=== PATIENT | male | born 1975 | race Caucasian/White ===

== ENCOUNTER 2022-08-07 06:37 | Inpatient (IN) ==
[2022-08-07] MEDS ORDERED: IOPAMIDOL 100 ML BOTTLE IV ONE (06:38)
[2022-08-07 06:55] LABS: POC Calcium, Ionized 1.16 (1.16-1.32); POC Creatinine 0.9 (0.6-1.2); POC Potassium 3.7 (3.3-5.1)
[2022-08-07] MEDS ORDERED: IPRATROPIUM/ALBUTEROL 3 ML AMPUL.NEB NEB ONE ×2 (07:19→13:52)
--- NOTE | 2022-08-07 07:19 | Emergency Department Note ---
HPI General Chief complaint: Shortness of Breath/Dyspnea Stated complaint: Shortness of Breath, hx of CHF Time Seen by Provider: 08/07/22 06:45 Source: patient Mode of arrival: ambulatory Limitations: no limitations History of Present Illness HPI Narrative: Narrative: Patient is a 47-year-old male with a past medical history significant for CHF who presents to the emergency department due to shortness of breath. Patient states that he has had a swelling. At time feeling short of breath when lying flat and waking at night feeling short of breath. He states that this morning though he became significantly more short of breath, and so went to lay down. While laying down he had his blood pressure taken, and this was consistently normal for him, but he noticed that his oxygen saturation on his home O2 monitor was dipping down consistently into the 70s and 80s, but he did state that it would consistently return to the 90s. He does endorse some worsening shortness of breath with activity as well. He endorses lightheadedness. He denies any other symptoms at this time. Patient states that he was diagnosed with heart failure in the summer, and has been taking Lasix since that time. He states that initially when he would take Lasix he would urinate 5 or 6 times, but now urinates 2 times when he takes Lasix. Related Data Home Medications Medication Instructions Recorded Confirmed No Known Home Meds 05/18/21 05/18/21 Allergies Allergy/AdvReac Type Severity Reaction Status Date / Time ceftriaxone [From Rocephin] Allergy Severe Anaphylaxis Verified 03/08/22 23:22 Review of Systems ROS ROS Narrative: Narrative: Constitutional: Denies fever or weakness Eyes: Denies eye pain or vision change ENT ED: Denies throat pain or rhinorrhea Cardiovascular: Reports dyspnea on exertion, orthopnea and other (Lightheadedness); Denies chest pain or edema Respiratory: Reports shortness of breath; Denies cough Gastrointestinal: Denies abdominal pain, nausea, vomiting, diarrhea, constipation, hematochezia or melena Genitourinary: Denies dysuria or frequency Musculoskeletal: Denies back pain or myalgia Integumentary: Denies rash or lesions Neurological: Denies headache, weakness, numbness, confusion, abnormal gait or dizziness Endocrine: Denies fatigue or polyuria PFS Narrative Patient History Narrative: Narrative: Medical/Surgical/Family History All Active Problems (Updated 08/07/22 @ 11:26 by Valeriy Angeles MD) Bilateral hand pain (Acute) Paresthesia of both hands (Acute) Bilateral carpal tunnel syndrome (Acute) Acute and chronic respiratory failure with hypoxia (Acute) CHF (congestive heart failure) (Acute) Bilateral leg edema (Acute) CHF exacerbation (Acute) Social History Smoking Status: Current every day smoker Exam Narrative Narrative: Narrative: General Limitations: no limitations General appearance: Present alert and in no apparent distress; Absent anxious, appears intoxicated or sleepy Head Head: Present atraumatic and normocephalic Eye Eye: Present EOMI; Absent scleral icterus or nystagmus ENT ENT: Present mucous membranes moist; Absent nasal congestion Neck Neck: Present full ROM; Absent tenderness Chest Chest: Present normal inspection and symmetric chest wall rise; Absent tenderness Respiratory Respiratory: Present normal lung sounds bilaterally, rales/crackles and wheezes; Absent respiratory distress, stridor or accessory muscle use Cardiovascular Cardiovascular: Present normal rhythm, tachycardia and normal heart sounds Adbominal Abdominal: Present soft and normal bowel sounds; Absent distention Extremities Extremities: Present normal inspection and full ROM; Absent tenderness, pedal edema or pretibial edema Back Back: Present normal inspection and full ROM Neurological Neurological: Present alert and oriented X3 Psychiatric Psychiatric: Present normal affect and normal mood Skin Skin: Present warm (WNL), dry and normal color Course Vital Signs Vital signs: Vital Signs Temperature 97.8 F 08/07/22 06:40 Pulse Rate 104 H 08/07/22 06:40 Respiratory Rate 38 H 08/07/22 06:40 Blood Pressure 141/116 08/07/22 06:40 Pulse Oximetry (%) 97 08/07/22 06:40 Oxygen Delivery Method 08/07/22 06:40 Temperature 97.8 F 08/07/22 06:40 Pulse Rate 87 08/07/22 11:20 Respiratory Rate 27 H 08/07/22 11:20 Blood Pressure 128/84 08/07/22 11:11 Pulse Oximetry (%) 96 08/07/22 11:20 Oxygen Delivery Method 08/07/22 10:12 Oxygen Flow Rate (L/min) 2 08/07/22 10:12 [facility] MDM Narrative Medical decision making narrative: Narrative: Patient is a 47-year-old male who presents to the emergency department due to shortness of breath and low oxygen saturation. Differential diagnoses include heart failure exacerbation, undiagnosed COPD given patient's long history of smoking, pneumonia, COVID, influenza, and pulmonary embolus. Pulmonary embolus is less likely given absence of signs or symptoms of DVT, absence of immobilization or surgery in the previous 4 weeks, absence of previous clot, absence of hemoptysis, and absence of diagnosis of malignancy. Patient's labs are significant for an elevated BNP of 2048. I performed a bedside echo which did demonstrate decreased EF. Patient's D-dimer was elevated, so a CT angio was performed. Clots and were not visualized, but p atient was found to have groundglass opacities. Patient has received a dose of doxycycline. Patient was given Lasix. Patient did have improvement in his shortness of breath with Lasix. He was also given a DuoNeb with mild improvement. Despite these interventions patient continued to have episodes of hypoxemia, and became hypoxemic with walking. For these reasons I spoke to Dr. Up and he has agreed to see and evaluate patient for admission. Lab Data Result diagrams: 08/07/22 07:05 Labs: Lab Results 08/07/22 08/07/22 08/07/22 Range/Units 06:52 06:59 07:04 WBC (4.5-11.0) K/mcL RBC (4.63-6.08) M/mcL Hgb (13.7-17.5) g/dL Hct (40.1-51.0) % POC Hct 39.0 L (41-55) MCV (80.0-100.0) fL MCH (26.0-34.0) pg MCHC (31.0-36.0) g/dL RDW (11.5-14.5) % Plt Count (140-440) K/mcL MPV (8.8-12.5) fL Immature Gran % (Auto) (0.0-0.5) % Neut % (Auto) (38.0-78.0) % Lymph % (Auto) (15.5-49.0) % [place] % (Auto) (1.0-12.0) % Eos % (Auto) (0.0-7.0) % Baso % (Auto) (0.0-2.0) % Lymph # (Auto) (1.50-4.80) K/mcL [place] # (Auto) (0.10-0.90) K/mcL Eos # (Auto) (0.00-0.70) K/mcL Baso # (Auto) (0.00-0.30) K/mcL Immature Gran # (0.00-0.05) K/mcl Absolute Neutrophils (1.80-8.00) K/mcL D-Dimer 1.71 H (0.27-0.50) ug/mL POC pH (7.35-7.45) POC pCO2 (35-45) mmHg POC pO2 (80-100) mmHg POC HCO3 (22-26) mmHg POC ABG Base Excess (-2-3) ABG Lactic Acid (0.5-2) Hgb O2 Saturation (94-97) POC Sodium 139 (133-145) POC Potassium 3.7 (3.3-5.1) POC Chloride 103 (96-108) POC Total CO2 25.0 (22-30) POC BUN 14 (6-20) POC Creatinine 0.9 (0.6-1.2) POC Glucose 139 H (70-105) POC WB Ioniz Calcium 1.16 (1.16-1.32) NT-Pro-B Natriuret Pep (<125.0) pg/mL POC Troponin I < 0.02 (0.00-0.08) 08/07/22 08/07/22 08/07/22 Range/Units 07:04 07:05 07:05 WBC 10.2 (4.5-11.0) K/mcL RBC 4.33 L (4.63-6.08) M/mcL Hgb 13.3 L (13.7-17.5) g/dL Hct 40.1 (40.1-51.0) % POC Hct (41-55) MCV 92.6 (80.0-100.0) fL MCH 30.7 (26.0-34.0) pg MCHC 33.2 (31.0-36.0) g/dL RDW 13.3 (11.5-14.5) % Plt Count 288 (140-440) K/mcL MPV 9.3 (8.8-12.5) fL Immature Gran % (Auto) 0.9 H (0.0-0.5) % Neut % (Auto) 66.4 (38.0-78.0) % Lymph % (Auto) 24.7 (15.5-49.0) % [place] % (Auto) 5.4 (1.0-12.0) % Eos % (Auto) 2.1 (0.0-7.0) % Baso % (Auto) 0.5 (0.0-2.0) % Lymph # (Auto) 2.52 (1.50-4.80) K/mcL [place] # (Auto) 0.55 (0.10-0.90) K/mcL Eos # (Auto) 0.21 (0.00-0.70) K/mcL Baso # (Auto) 0.05 (0.00-0.30) K/mcL Immature Gran # 0.09 H (0.00-0.05) K/mcl Absolute Neutrophils 6.79 (1.80-8.00) K/mcL D-Dimer (0.27-0.50) ug/mL POC pH 7.32 L (7.35-7.45) POC pCO2 48.4 H (35-45) mmHg POC pO2 33 L* (80-100) mmHg POC HCO3 25.3 (22-26) mmHg POC ABG Base Excess -1.0 (-2-3) ABG Lactic Acid 1.1 (0.5-2) Hgb O2 Saturation 59.0 L (94-97) POC Sodium (133-145) POC Potassium (3.3-5.1) POC Chloride (96-108) POC Total CO2 27.0 (22-30) POC BUN (6-20) POC Creatinine (0.6-1.2) POC Glucose (70-105) POC WB Ioniz Calcium (1.16-1.32) NT-Pro-B Natriuret Pep 2048.0 H (<125.0) pg/mL POC Troponin I (0.00-0.08) ED POC Tests ED POC Tests: NORMAN - Influenza A Negative NORMAN - Influenza B Negative NORMAN - SARS Antigen Negative EKG Data EKG #1: EKG attestation: Yes I reviewed and interpreted this EKG. EKG results narrative: Sinus tachycardia with a rate of 103, left axis deviation, [place] of 151, QRS of 95, QTc of 499, T wave flattening in leads aVL and III, and absence of ST elevation or depression. Discharge Plan Patient/Caregiver Discharge Instructions Pt seen by PACKAGER MACHINE/PA only: No Clinical Impression: CHF exacerbation Patient Disposition: Xfer As Inpt ([facility]) Condition: Fair Follow up with: Nehemias Edwards MD [Primary Care Provider] - Prescriptions: No Action No Known Home Meds
--- NOTE | 2022-08-07 07:20 | XRay Report ---
CLINICAL INFORMATION: Dyspnea COMPARISON: 03/08/2022 TECHNIQUE: Portable FINDINGS: Equivocal cardiomegaly is unchanged. Mediastinum and pulmonary vessels are normal. Lungs are clear. No effusions. IMPRESSION: No acute disease. Interpreted and Authenticated by: Robi See 08/07/22
[2022-08-07 07:36] LABS: Basophils # (Auto) 0.05 K/mcL (0.00-0.30); Basophils % (Auto) 0.5 % (0.0-2.0); Eosinophils # (Auto) 0.21 K/mcL (0.00-0.70); Eosinophils % (Auto) 2.1 % (0.0-7.0); Hematocrit 40.1 % (40.1-51.0); Hemoglobin 13.3 g/dL (13.7-17.5); Lymphocytes # (Auto) 2.52 K/mcL (1.50-4.80); Lymphocytes % (Auto) 24.7 % (15.5-49.0); Mean Cell Volume 92.6 fL (80.0-100.0); Mean Corpuscular HGB Conc 33.2 g/dL (31.0-36.0); Mean Platelet Volume 9.3 fL (8.8-12.5); Monocytes # (Auto) 0.55 K/mcL (0.10-0.90); Monocytes % (Auto) 5.4 % (1.0-12.0); Neutrophils % (Auto) 66.4 % (38.0-78.0); Platelet Count 288 K/mcL (140-440); RBC 4.33 M/mcL (4.63-6.08); Red Cell Distribution Width 13.3 % (11.5-14.5); WBC 10.2 K/mcL (4.5-11.0)
[2022-08-07] MEDS ORDERED: FUROSEMIDE 100 MG/10 ML VIAL IV ONE (08:05)
[2022-08-07] MEDS ORDERED: DOXYCYCLINE 100 MG in DEXTROSE 5% IN WATER 100 ML IV ONE (09:14)
--- NOTE | 2022-08-07 11:29 | Internal Med History&Physical ---
HPI History of Present Illness Patient information: Note initiated : 08/07/22 at 11:26 am Service Date, if different from initiated Date: [] Patient: Marques Preciado 47 y/o M admitted on for Shortness of Breath, hx of CHF. Chief Complaint: [] History of present illness: Mr. Preciado is a 47 year old male with a reported history of systolic heart failure with an LV ejection fraction of 30% diagnosed in the summer 2019 who presented to the ED for increasing shortness of breath and orthopnea. In the emergency department, the patient had an elevated NT proBNP. EKG showed sinus tachycardia, troponin was normal. Chest x-ray did not show any acute changes. The patient had an elevated D-dimer therefore a CTA chest was performed. The radiology interpretation is still pending however the ED doc reports that the radiologist said it did not show any PE and was positive for groundglass opacities bilaterally. Other work-up in the ED including CBC with differential which did not show any leukocytosis, mild anemia similar to prior lab values with a hemoglobin of 13.3, normal hematocrit. A venous blood gas which showed a pH of 7.32 with a PCO2 of 48.8. A basic metabolic panel which was unremarkable. The most likely reason for the patient's symptoms is heart failure. Review of systems Constitutional: no fever, fatigue, or weight loss Eyes: no vision changes or pain Cardiovascular: no chest pain, no palpitations Respiratory: Positive for dyspnea and cough Gastrointestinal: no abdominal pain, no nausea, vomiting, or diarrhea Genitourinary: no dysuria or difficulty voiding Musculoskeletal: no arthralgia or myalgia Integumentary: no skin lesion or wound Neurological: no focal weakness or numbness Psychiatric: no anxiety or depression Physical exam Head: Atraumatic, normal inspection. Eyes: normal appearance, no scleral icterus. Neck: full ROM Respiratory: Faint bibasilar crackles, bilateral wheezing present. Cardiovascular: normal rate and rhythm, S1, S2. GI/Abdominal: soft, nontender, no guarding. Extremities: full range of motion, nontender. Neurological: CN II-XII intact, intact motor, intact sensation. Psychiatric: normal mood. Skin: warm, normal color PFSH PFSH All Active Problems (Updated 08/07/22 @ 11:26 by Valeriy Angeles MD) Bilateral hand pain (Acute) Paresthesia of both hands (Acute) Bilateral carpal tunnel syndrome (Acute) Acute and chronic respiratory failure with hypoxia (Acute) CHF (congestive heart failure) (Acute) Bilateral leg edema (Acute) CHF exacerbation (Acute) Social History smoking status: Current every day smoker MEDS/ALLERGIES Home Medications and Allergies Home Medications Medication Instructions Recorded Confirmed Type No Known Home Meds 05/18/21 05/18/21 History Allergies Allergy/AdvReac Type Severity Reaction Status Date / Time ceftriaxone [From Rocephin] Allergy Severe Anaphylaxis Verified 03/08/22 23:22 EXAM Constitutional Vitals: Temp Pulse Resp BP Pulse Ox O2 Del Method O2 Flow Rate 97.8 F 87 27 H 128/84 96 2 08/07/22 06:40 08/07/22 11:20 08/07/22 11:20 08/07/22 11:11 08/07/22 11:20 08/07/22 10:12 08/07/22 10:12 DATA Data Completed and Pending Labs: Labs from last 24 hours 08/07/22 08/07/22 08/07/22 07:05 07:05 07:04 WBC 10.2 RBC 4.33 L Hgb 13.3 L Hct 40.1 POC Hct MCV 92.6 MCH 30.7 MCHC 33.2 RDW 13.3 Plt Count 288 MPV 9.3 Immature Gran % (Auto) 0.9 H Neut % (Auto) 66.4 Lymph % (Auto) 24.7 [place] % (Auto) 5.4 Eos % (Auto) 2.1 Baso % (Auto) 0.5 Lymph # (Auto) 2.52 [place] # (Auto) 0.55 Eos # (Auto) 0.21 Baso # (Auto) 0.05 Immature Gran # 0.09 H Absolute Neutrophils 6.79 D-Dimer POC pH 7.32 L POC pCO2 48.4 H POC pO2 33 L* POC HCO3 25.3 POC ABG Base Excess -1.0 ABG Lactic Acid 1.1 Hgb O2 Saturation 59.0 L POC Sodium POC Potassium POC Chloride POC Total CO2 27.0 POC BUN POC Creatinine POC Glucose POC WB Ioniz Calcium NT-Pro-B Natriuret Pep 2048.0 H POC Troponin I 08/07/22 08/07/22 08/07/22 07:04 06:59 06:52 WBC RBC Hgb Hct POC Hct 39.0 L MCV MCH MCHC RDW Plt Count MPV Immature Gran % (Auto) Neut % (Auto) Lymph % (Auto) [place] % (Auto) Eos % (Auto) Baso % (Auto) Lymph # (Auto) [place] # (Auto) Eos # (Auto) Baso # (Auto) Immature Gran # Absolute Neutrophils D-Dimer 1.71 H POC pH POC pCO2 POC pO2 POC HCO3 POC ABG Base Excess ABG Lactic Acid Hgb O2 Saturation POC Sodium 139 POC Potassium 3.7 POC Chloride 103 POC Total CO2 25.0 POC BUN 14 POC Creatinine 0.9 POC Glucose 139 H POC WB Ioniz Calcium 1.16 NT-Pro-B Natriuret Pep POC Troponin I < 0.02 A/P Narrative A/P Narrative: Assessment: 47-year-old male with a reported history of systolic heart failure, obesity, tobacco use disorder presented to the ED for shortness of breath and admitted for acute hypoxic respiratory failure likely secondary to acute on chronic heart failure exacerbation. #Acute hypoxic respiratory failure #Probable acute on chronic systolic heart failure #Probable obstructive sleep apnea, untreated #At risk for COPD #Tobacco use disorder #Obesity BMI 32 Plan -Lasix 40 mg IV twice daily. -Monitor renal function, electrolytes, volume status. -Transthoracic echocardiogram. -Check UDS. -Repeat VBG. -Follow-up pending CTA chest report. -Scheduled duonebs and Albuterol nebs as needed. -Reports taking beta-sudha and ARB, continue when reconciled. -Consider adding spironolactone. -Consider adding SGLT2 inhibitor at discharge. -Consider switching ARB to Entresto at discharge. -Home medication reconciliation, continue important home medications. -Nicotine replacement. -CPAP at bedtime. -laboratory monitor. -DVT prophylaxis: Lovenox -Disposition: Home when stable. Referral to cardiology at discharge. Time Spent With Patient Time: Total time spent is greater than 50% in coordination of care (as documented) at patient's floor/unit and/or counseling patient:
[2022-08-07 11:50] LABS: Amphetamine Screen,Urine Suspect positive; Barbiturate Screen,Urine None detected; Benzodiazepines Screen,Urine None detected; Cannabinoid Screen,Urine Suspect Positive; Cocaine Screen,Urine None detected; Opiate Screen,Urine None detected; Oxycodone, Urine Screen None detected; Phencyclidine Screen,Urine None detected
[2022-08-07] MEDS ORDERED: NICOTINE POLACRILEX 2 MG GUM CHEW/PARK PRN (13:12)
[2022-08-07] MEDS ORDERED: LACTULOSE 20 GM/30 ML ORAL.SOL PO PRN (13:12)
[2022-08-07] MEDS ORDERED: ACETAMINOPHEN 325 MG TABLET PO PRN (13:12)
[2022-08-07] MEDS ORDERED: NICOTINE 21 MG PATCH TOPICAL SCH (13:12)
[2022-08-07] MEDS ORDERED: ONDANSETRON 4 MG/2 ML VIAL IV PRN (13:12)
[2022-08-07] MEDS ORDERED: SENNOSIDES 1 TABLET PO PRN (13:12)
[2022-08-07] MEDS ORDERED: ALBUTEROL SULFATE 2.5 MG/3 ML NEBULIZER NEB PRN (13:12)
[2022-08-07] MEDS ORDERED: POTASSIUM CHLORIDE 20 MEQ TABLET PO ONE (13:12)
[2022-08-07 13:59] LABS: ABG Methemoglobin 0.2 % (0.4-1.5); Total Hemoglobin 15.3 gm/Dl (13.5-16.5); VBG Base Excess 2 (-2-3); VBG HCO3 27.5 mmol/L (24.0-28.0); VBG Oxygen Saturation 66.6 % (40.0-70.0); VBG PCO2 44.4 mmHg (41.0-51.0); VBG PH 7.41 U (7.32-7.42); VBG PO2 35.5 mmHg (25.0-40.0); VBG Total CO2 28.9 mmol/L (25.0-29.0)
[2022-08-07] MEDS ORDERED: 0.9 % SODIUM CHLORIDE 10 ML SYRINGE IV SCH (14:00)
[2022-08-07] MEDS: IPRATROPIUM/ALBUTEROL 3 ML AMPUL.NEB NEB SCH ×2 (14:10→15:08)
[2022-08-07 14:27] LABS: ALT/SGPT 35 U/L (<40); AST/SGOT 26 U/L (<40); Albumin 3.7 gm/dL (3.2-5.2); Albumin/Globulin Ratio 1.3 (1.0-2.3); Alkaline Phosphatase 85 U/L (39-117); Bilirubin,Direct 0.3 mg/dL (<0.3); Blood Urea Nitrogen 11 mg/dL (6-20); Calcium 8.6 mg/dL (8.6-10.4); Carbon Dioxide 29 mmol/L (22-30); Chloride 99 mmol/L (96-108); Globulin 2.8 gm/dL (2.2-3.7); Glomerular Filtration Rate 90; Glucose 129 mg/dL (70-105); Lactate Dehydrogenase 305 U/L (135-225); Phosphorous 3.1 mg/dL (2.5-4.5); Triglycerides 172 mg/dL (<150); Uric Acid 6.2 mg/dL (2.5-8.0)
[2022-08-07] MEDS ORDERED: OMEPRAZOLE 20 MG CAPSULE PO PRN (15:56)
[2022-08-07] MEDS ORDERED: FUROSEMIDE 40 MG/4 ML VIAL IV SCH (16:00)
--- NOTE | 2022-08-07 16:31 | Cat Scan Report ---
CLINICAL INFORMATION: Shortness of breath. History of CHF. Elevated d-dimer COMPARISON: CT pulmonary exam 03/09/2022 TECHNIQUE: 80ml of Isovue-370 were injected intravenously. Using SmartPrep to maximize pulmonary artery opacification, .625mm helical slices were obtained from the lung apices through the lung bases. Following reconstruction, 2.5 mm sagittal, coronal, and axial reformations were processed. The exam was reviewed at mediastinal, lung, and bone windows. The exam was performed using radiation dose optimization techniques including, but not limited to, automated exposure control, adjustment of the mA and/or kV according to patient size and use of iterative reconstruction technique. FINDINGS: Pulmonary parenchymal windows moderate patchy groundglass airspace disease which is generally distributed in the peribronchovascular perihilar regions and in the dependent lower lobes. There is also thickening of interlobular septa and tiny bilateral pleural effusions. Findings supportive of congestive heart failure.. Only Mediastinal windows show the heart is mildly enlarged. The pulmonary arteries are well-opacified without evidence of embolus. Pulmonary arteries are mildly diffusely enlarged compared to the previous examination which is supportive of CHF. Thoracic aorta is also normal diameter and well-opacified. There is no adenopathy in the mediastinal, hilar or axillary regions. Esophagus is grossly normal. The thyroid is unremarkable. Bones and soft tissues the chest wall are normal. Images through the superior abdomen show mild diffuse wall thickening of the gallbladder with pericholecystic fluid suggesting acalculous cholecystitis. This is a new finding. A 2 mm nonobstructing stone is seen within a superior calyx of the right kidney. IMPRESSION: 1. No evidence of pulmonary embolus 2. Suspect moderate congestive heart failure. Please correlate with other history and physical exam findings supportive of CHF and BNP 3. Suspect acalculous cholecystitis. Suggest abdominal ultrasound Interpreted and Authenticated by: Robi See 08/07/22
[2022-08-07] MEDS ORDERED: CLINDAMYCIN 150 MG CAPSULE PO SCH (21:00)
[2022-08-07] MEDS ORDERED: DOCUSATE SODIUM 100 MG CAPSULE PO SCH (21:00)
[2022-08-08] MEDS ORDERED: LOSARTAN 25 MG TABLET PO SCH (09:00)
[2022-08-08] MEDS ORDERED: METOPROLOL SUCCINATE 50 MG TAB.XL.24H PO SCH (09:00)
[2022-08-08] MEDS ORDERED: ENOXAPARIN 40 MG/0.4 ML SYRINGE SQ SCH (09:00)
--- NOTE | 2022-08-09 10:20 | EKG ---
[facility] Test Date: 2022-08-07 Pat Name: Marques Preciado Department: ED Room: Gender: Male [employer]: : 1975 Requested By: Faizan Juarez Order Number: [id number] Reading MD: Aguilar Tolentino D.O. Measurements Intervals [place] Rate: 103 P: 43 [place]: 151 QRS: -53 QRSD: 95 T: 51 QT: 380 QTc: 499 Interpretive Statements Sinus tachycardia Borderline T wave abnormalities Borderline prolonged QT interval Electronically Signed On 08-09-2022 10:20:15 PST by Aguilar Tolentino D.O. /[id number]
== END 2022-08-07 19:05 | disposition left against medical advice (07) | DRG 291 ==
LOC: ED 06:37 → ICU 13:08
PROVIDERS: ADMIT Internal Medicine; ATTEND Internal Medicine

== ENCOUNTER 2024-05-03 07:17 | Inpatient (IN) ==
[2024-05-03] MEDS: IPRATROPIUM/ALBUTEROL 3 ML AMPUL.NEB NEB ONE ×2 (07:45→07:55)
[2024-05-03] MEDS: FUROSEMIDE 40 MG/4 ML VIAL IV ONE (07:55)
[2024-05-03 08:20] LABS: Basophils # (Auto) 0.03 K/mcL (0.00-0.30); Basophils % (Auto) 0.3 % (0.0-2.0); Eosinophils # (Auto) 0.19 K/mcL (0.00-0.70); Hematocrit 44.5 % (40.1-51.0); Hemoglobin 13.9 g/dL (13.7-17.5); Lymphocytes # (Auto) 1.33 K/mcL (1.50-4.80); Lymphocytes % (Auto) 14.3 % (15.5-49.0); Mean Cell Volume 97.6 fL (80.0-100.0); Mean Corpuscular HGB Conc 31.2 g/dL (31.0-36.0); Mean Platelet Volume 9.5 fL (8.8-12.5); Monocytes # (Auto) 0.88 K/mcL (0.10-0.90); Monocytes % (Auto) 9.4 % (1.0-12.0); Neutrophils % (Auto) 73.8 % (38.0-78.0); Platelet Count 230 K/mcL (140-440); RBC 4.56 M/mcL (4.63-6.08); Red Cell Distribution Width 13.7 % (11.5-14.5); WBC 9.3 K/mcL (4.5-11.0)
[2024-05-03 08:23] LABS: Appearance,Urine Clear (Clear); Bilirubin,Urine Negative (Negative); Color,Urine Yellow; Glucose,Urine (UA) Negative (Negative); Ketones,Urine Negative (Negative); Leukocyte Esterase,Urine Negative /uL (Negative); Mucus,Urine Few /hpf; Nitrate,Urine Negative (Negative); PH,Urine 5.5 (5.0-9.0); Protein,Urine Negative (Negative); Urine Blood Negative ery/mcL (Negative); Urine Hyaline Cast 1 /lph (0-2); Urine RBC 0 /hpf (0-3); Urine Squamous Epithelial Cell 0 /hpf (0-4); Urine WBC 0 /hpf (0-4)
[2024-05-03 08:56] LABS: Blood Urea Nitrogen 17 mg/dL (6-20); Calcium 8.5 mg/dL (8.6-10.4); Carbon Dioxide 25 mmol/L (22-30); Chloride 103 mmol/L (96-108); Glomerular Filtration Rate 80; Glucose 140 mg/dL (70-105); Potassium 4.1 mmol/L (3.3-5.1); Sodium 140 mmol/L (133-145)
[2024-05-03] MEDS: LEVOFLOXACIN 750 MG/150 ML BAG IV ONE (10:11)
[2024-05-03] MEDS ORDERED: DEXTROSE 50% 50 ML VIAL IV PRN (11:36)
[2024-05-03] MEDS ORDERED: ONDANSETRON 4 MG/2 ML VIAL IV PRN (11:36)
[2024-05-03] MEDS ORDERED: DEXTROSE 31 GM ORAL.SUSP PO PRN (11:36)
[2024-05-03] MEDS: INSULIN LISPRO 1 UNIT/0.01 ML UNIT SQ SCH (12:22)
[2024-05-03] MEDS: FUROSEMIDE 40 MG/4 ML VIAL IV SCH (13:48)
[2024-05-03] MEDS: 0.9 % SODIUM CHLORIDE 10 ML SYRINGE IV SCH (13:48)
[2024-05-03] MEDS ORDERED: FUROSEMIDE 40 MG/4 ML VIAL IV SCH (14:00)
[2024-05-03] MEDS: SPIRONOLACTONE 25 MG TABLET PO SCH (19:23)
[2024-05-03 20:33] LABS: Amphetamine Screen,Urine Suspect positive; Barbiturate Screen,Urine None detected; Benzodiazepines Screen,Urine None detected; Cannabinoid Screen,Urine None detected; Cocaine Screen,Urine None detected; Fentanyl, Urine Screen None Detected; Opiate Screen,Urine None detected; Oxycodone, Urine Screen None detected; Phencyclidine Screen,Urine None detected
[2024-05-03] MEDS ORDERED: OMEPRAZOLE 20 MG CAPSULE PO PRN (21:21)
[2024-05-03] MEDS: HEPARIN 5,000 UNIT/ML VIAL SQ SCH (21:25)
[2024-05-04 06:22] LABS: Basophils # (Auto) 0.02 K/mcL (0.00-0.30); Basophils % (Auto) 0.2 % (0.0-2.0); Eosinophils # (Auto) 0.23 K/mcL (0.00-0.70); Eosinophils % (Auto) 2.7 % (0.0-7.0); Hemoglobin 13.8 g/dL (13.7-17.5); Lymphocytes # (Auto) 1.64 K/mcL (1.50-4.80); Lymphocytes % (Auto) 19.2 % (15.5-49.0); Mean Cell Volume 97.6 fL (80.0-100.0); Mean Corpuscular HGB Conc 31.4 g/dL (31.0-36.0); Mean Platelet Volume 9.6 fL (8.8-12.5); Monocytes # (Auto) 0.73 K/mcL (0.10-0.90); Monocytes % (Auto) 8.5 % (1.0-12.0); Neutrophils % (Auto) 69.2 % (38.0-78.0); Platelet Count 223 K/mcL (140-440); RBC 4.51 M/mcL (4.63-6.08); Red Cell Distribution Width 13.8 % (11.5-14.5); WBC 8.6 K/mcL (4.5-11.0)
[2024-05-04 06:50] LABS: ALT/SGPT 21 U/L (<40); AST/SGOT 24 U/L (<40); Albumin 3.2 gm/dL (3.2-5.2); Albumin/Globulin Ratio 1.3 (1.0-2.3); Alkaline Phosphatase 64 U/L (39-117); Bilirubin,Direct 0.3 mg/dL (<0.3); Bilirubin,Total 0.6 mg/dL (0.1-1.0); Blood Urea Nitrogen 17 mg/dL (6-20); Calcium 8.4 mg/dL (8.6-10.4); Carbon Dioxide 29 mmol/L (22-30); Chloride 101 mmol/L (96-108); Globulin 2.5 gm/dL (2.2-3.7); Glomerular Filtration Rate 80; Glucose 130 mg/dL (70-105); Lactate Dehydrogenase 373 U/L (135-225); Phosphorous 3.7 mg/dL (2.5-4.5); Potassium 3.6 mmol/L (3.3-5.1); Sodium 141 mmol/L (133-145); Triglycerides 108 mg/dL (<150); Uric Acid 8.9 mg/dL (2.5-8.0)
[2024-05-04] MEDS: ACETAMINOPHEN 325 MG TABLET PO PRN (07:18)
[2024-05-04] MEDS: METOPROLOL SUCCINATE 50 MG TAB.XL.24H PO SCH (09:14)
[2024-05-04] MEDS: Sacubitril-Valsartan [Entresto] 24-26 mg tablet PO SCH (09:16)
[2024-05-04] MEDS: POTASSIUM CHLORIDE 20 MEQ TABLET PO SCH (11:00)
[2024-05-05] MEDS: IPRATROPIUM/ALBUTEROL 3 ML AMPUL.NEB NEB PRN (01:05)
[2024-05-05 06:43] LABS: ALT/SGPT 17 U/L (<40); AST/SGOT 22 U/L (<40); Albumin 3.3 gm/dL (3.2-5.2); Albumin/Globulin Ratio 1.4 (1.0-2.3); Alkaline Phosphatase 64 U/L (39-117); Bilirubin,Direct < 0.2 mg/dL (0-0.3); Bilirubin,Total 0.4 mg/dL (0.1-1.0); Blood Urea Nitrogen 17 mg/dL (6-20); Calcium 8.7 mg/dL (8.6-10.4); Carbon Dioxide 30 mmol/L (22-30); Chloride 102 mmol/L (96-108); Globulin 2.3 gm/dL (2.2-3.7); Glomerular Filtration Rate 80; Glucose 126 mg/dL (70-105); Lactate Dehydrogenase 242 U/L (135-225); Phosphorous 3.6 mg/dL (2.5-4.5); Potassium 4.4 mmol/L (3.3-5.1); Sodium 140 mmol/L (133-145); Triglycerides 122 mg/dL (<150); Uric Acid 8.9 mg/dL (2.5-8.0)
[2024-05-05] MEDS: FUROSEMIDE 40 MG/4 ML VIAL IV SCH (20:23)
[2024-05-06 06:48] LABS: ALT/SGPT 17 U/L (<40); AST/SGOT 40 U/L (<40); Albumin 3.5 gm/dL (3.2-5.2); Albumin/Globulin Ratio 1.3 (1.0-2.3); Alkaline Phosphatase 61 U/L (39-117); Bilirubin,Direct < 0.2 mg/dL (0-0.3); Bilirubin,Total 0.5 mg/dL (0.1-1.0); Blood Urea Nitrogen 18 mg/dL (6-20); Carbon Dioxide 30 mmol/L (22-30); Chloride 97 mmol/L (96-108); Globulin 2.7 gm/dL (2.2-3.7); Glomerular Filtration Rate 80; Glucose 120 mg/dL (70-105); Lactate Dehydrogenase 247 U/L (135-225); Phosphorous 4.2 mg/dL (2.5-4.5); Potassium 4.8 mmol/L (3.3-5.1); Sodium 137 mmol/L (133-145); Triglycerides 129 mg/dL (<150); Uric Acid 9.3 mg/dL (2.5-8.0)
[2024-05-06 08:12] LABS: Herpes Simplex Vir 2 IGG Ab-SO <0.91 index (0.00-0.90)
[2024-05-06] MEDS: valACYclovir 500 MG TABLET PO SCH (09:45)
[2024-05-06] MEDS: METOLAZONE 2.5 MG TABLET PO ONE (09:45)
[2024-05-07] MEDS: FUROSEMIDE 40 MG TABLET PO SCH (08:42)
[2024-05-11 04:08] LABS: Amphetamine Screen Negative (Cutoff=500)
== END 2024-05-07 10:31 | disposition home or self-care (01) | DRG 291 ==
LOC: ED 07:17 → ICU 11:20
PROVIDERS: ADMIT Student in an Organized Health Care Education/Training Program; ATTEND Internal Medicine

== ENCOUNTER 2025-07-18 02:46 | Observation (INO) ==
[2025-07-18] MEDS ORDERED: IOPAMIDOL 100 ML BOTTLE IV ONE (02:47)
[2025-07-18 03:31] LABS: Basophils # (Auto) 0.02 K/mcL (0.00-0.30); Basophils % (Auto) 0.2 % (0.0-2.0); Eosinophils # (Auto) 0.18 K/mcL (0.00-0.70); Eosinophils % (Auto) 1.9 % (0.0-7.0); Hematocrit 46.5 % (40.1-51.0); Hemoglobin 14.5 g/dL (13.7-17.5); Lymphocytes # (Auto) 1.46 K/mcL (1.50-4.80); Lymphocytes % (Auto) 15.6 % (15.5-49.0); Mean Corpuscular HGB Conc 31.2 g/dL (31.0-36.0); Monocytes # (Auto) 0.79 K/mcL (0.10-0.90); Monocytes % (Auto) 8.5 % (1.0-12.0); Neutrophils % (Auto) 73.6 % (38.0-78.0); Platelet Count 258 K/mcL (140-440); RBC 4.54 M/mcL (4.63-6.08); WBC 9.3 K/mcL (4.5-11.0)
[2025-07-18 04:01] LABS: ALT/SGPT 47 U/L (<40); AST/SGOT 41 U/L (<40); Albumin 3.4 gm/dL (3.2-5.2); Albumin/Globulin Ratio 1.3 (1.0-2.3); Alkaline Phosphatase 95 U/L (39-117); Anion Gap 8.0 (8.0-16.0); Bilirubin,Total 0.5 mg/dL (0.1-1.0); Blood Urea Nitrogen 14 mg/dL (6-20); Calcium 8.5 mg/dL (8.6-10.4); Carbon Dioxide 31 mmol/L (22-30); Chloride 98 mmol/L (96-108); Globulin 2.6 gm/dL (2.2-3.7); Glucose 243 mg/dL (70-105); Potassium 3.7 mmol/L (3.3-5.1); Sodium 137 mmol/L (133-145)
[2025-07-18] MEDS: FUROSEMIDE 40 MG/4 ML VIAL IV ONE ×2 (04:11→18:21)
[2025-07-18 04:19] LABS: INR 1.0 (0.9-1.1); Prothrombin Time 14.3 sec (11.9-14.5)
[2025-07-18 04:29] LABS: Alcohol,Blood < 0.010 g/dL (<0.010)
[2025-07-18 05:10] LABS: Bacteria,Urine 0 /hpf (0); Barbiturate Screen,Urine None detected; Benzodiazepines Screen,Urine None detected; Bilirubin,Urine NEGATIVE (Negative); Color,Urine LT. YELLOW; Fentanyl, Urine Screen None Detected; Glucose,Urine (UA) 250 mg/dL (Negative); Ketones,Urine NEGATIVE (Negative); Leukocyte Esterase,Urine NEGATIVE /uL (Negative); Opiate Screen,Urine None detected; Oxycodone, Urine Screen None detected; PH,Urine 6.0 (5.0-9.0); Phencyclidine Screen,Urine None detected; Protein,Urine 30 mg/dL (Negative); Specific Gravity,Urine 1.025 (1.000-1.035); Urobilinogen,Urine 1.0 mg/dL
[2025-07-18 10:53] LABS: Phosphorous 3.1 mg/dL (2.5-4.5)
[2025-07-18 10:53] LABS: C-Reactive Protein 1.59 mg/dL (0.03-0.80)
[2025-07-18] MEDS ORDERED: ACETAMINOPHEN 325 MG TABLET PO PRN (11:35)
[2025-07-18] MEDS ORDERED: IPRATROPIUM/ALBUTEROL 3 ML AMPUL.NEB NEB PRN (11:35)
[2025-07-18] MEDS ORDERED: SENNOSIDES 1 TABLET PO PRN (11:35)
[2025-07-18] MEDS ORDERED: LACTULOSE 20 GM/30 ML ORAL.SOL PO PRN (11:35)
[2025-07-18] MEDS ORDERED: ONDANSETRON 4 MG/2 ML VIAL IV PRN (11:35)
[2025-07-18] MEDS: METOPROLOL SUCCINATE 50 MG TAB.XL.24H PO SCH (12:27)
[2025-07-18] MEDS: 0.9 % SODIUM CHLORIDE 10 ML SYRINGE IV SCH (12:29)
[2025-07-18] MEDS: DOCUSATE SODIUM 100 MG CAPSULE PO SCH (22:49)
[2025-07-18] MEDS: MUPIROCIN OINT 2% 22GM NARES SCH (22:49)
[2025-07-19 06:05] LABS: Basophils # (Auto) 0.02 K/mcL (0.00-0.30); Basophils % (Auto) 0.2 % (0.0-2.0); Eosinophils # (Auto) 0.19 K/mcL (0.00-0.70); Eosinophils % (Auto) 2.2 % (0.0-7.0); Hematocrit 45.7 % (40.1-51.0); Hemoglobin 14.0 g/dL (13.7-17.5); Lymphocytes # (Auto) 1.51 K/mcL (1.50-4.80); Lymphocytes % (Auto) 17.6 % (15.5-49.0); Mean Corpuscular HGB Conc 30.6 g/dL (31.0-36.0); Monocytes # (Auto) 0.68 K/mcL (0.10-0.90); Monocytes % (Auto) 7.9 % (1.0-12.0); Neutrophils % (Auto) 71.8 % (38.0-78.0); Platelet Count 238 K/mcL (140-440); RBC 4.42 M/mcL (4.63-6.08); WBC 8.6 K/mcL (4.5-11.0)
[2025-07-19 06:25] LABS: ALT/SGPT 42 U/L (<40); AST/SGOT 33 U/L (<40); Albumin 3.3 gm/dL (3.2-5.2); Albumin/Globulin Ratio 1.3 (1.0-2.3); Alkaline Phosphatase 74 U/L (39-117); Anion Gap 10.0 (8.0-16.0); Bilirubin,Direct 0.3 mg/dL (<0.3); Bilirubin,Total 0.5 mg/dL (0.1-1.0); Blood Urea Nitrogen 14 mg/dL (6-20); Calcium 8.2 mg/dL (8.6-10.4); Carbon Dioxide 33 mmol/L (22-30); Chloride 95 mmol/L (96-108); Globulin 2.5 gm/dL (2.2-3.7); Glucose 237 mg/dL (70-105); Phosphorous 2.8 mg/dL (2.5-4.5); Potassium 4.0 mmol/L (3.3-5.1); Sodium 138 mmol/L (133-145); Triglycerides 140 mg/dL (<150); Uric Acid 8.6 mg/dL (2.5-8.0)
[2025-07-19 08:15] VITALS: TEMP 97
[2025-07-19] MEDS: SPIRONOLACTONE 25 MG TABLET PO SCH (08:30)
[2025-07-19] MEDS: PANTOPRAZOLE 40 MG TABLET PO SCH (08:30)
[2025-07-19] MEDS: FUROSEMIDE 40 MG TABLET PO SCH (08:30)
[2025-07-19] MEDS: FUROSEMIDE 40 MG/4 ML VIAL IV ONE (13:23)
[2025-07-19 13:30] VITALS: O2SAT 95
[2025-07-20] MEDS ORDERED: FUROSEMIDE 40 MG TABLET PO SCH (09:00)
== END 2025-07-19 11:17 | disposition home or self-care (01) ==
LOC: ED 02:46 → INTOOBSV 11:30 → ICU 11:30
PROVIDERS: ADMIT Student in an Organized Health Care Education/Training Program; ATTEND Student in an Organized Health Care Education/Training Program